=== PATIENT | female | born 1960 | race Caucasian/White ===

== ENCOUNTER → 2018-03-01 | Outpatient (CLI) | payer OTHER ==
[~2018-03-01] MED LIST: ASPIRIN EC81 M1 PO; ASPIRIN81 M2 PO; BRILINTA90 MG PO; LIPITOR80 MG PO; MULTI VITAMIN1 EACH PO; QVAR8.7 G1 INH; SYMBICORT160 MCG/4. INH; TOPAMAX 100 MG100 MG PO; TOPAMAX50 MG PO; TOPROL XL25 MG PO
== END ==
LOC: M.RAD 07:55
DX: Z12.31 Encounter for screening mammogram for malignant neoplasm of breast (principal); I10 Essential (primary) hypertension; E78.00 Pure hypercholesterolemia, unspecified; J44.9 Chronic obstructive pulmonary disease, unspecified; I48.91 Unspecified atrial fibrillation; I25.10 Atherosclerotic heart disease of native coronary artery without angina pectoris

== ENCOUNTER → 2018-03-06 | Outpatient (CLI) | payer OTHER | LOC: M.RAD 03-01 15:01 → M.ULTRA 03-08 09:00 | DX: N63.11 Unspecified lump in the right breast, upper outer quadrant (principal); R92.2 Inconclusive mammogram; I10 Essential (primary) hypertension; E78.00 Pure hypercholesterolemia, unspecified; J44.9 Chronic obstructive pulmonary disease, unspecified; I48.91 Unspecified atrial fibrillation; Z95.5 Presence of coronary angioplasty implant and graft ==